=== PATIENT | male | born 1995 | race Caucasian/White ===

== ENCOUNTER 2017-03-13 05:31 | Day surgery (SDC) | payer BC ==
[2017-03-12 10:42] VITALS: BMI 24.8
--- NOTE | 2017-03-12 18:53 | HPN ---
Date/Time of Note Date/Time of Note DATE: 03/12/17 TIME: 18:53 Interval H&P Admission Note Pt. seen H&P reviewed: No system changes MARY TARANGO MD Mar 12, 2017 18:53
[2017-03-13] VITALS (10 sets, daily range): BP systolic 108–118; BP diastolic 56–75; PULSE 58–88; RESP 11–18; Ht 170.2 cm; Wt 83.0 kg
[~2017-03-13] VITALS: Ht 170.2 cm; Wt 83.0 kg
[2017-03-13] MEDS ORDERED: CEFAZOLIN 2 GM/50 ML (PMX) 50 ML IVPB SCH (06:00)
[2017-03-13] MEDS ORDERED: CEFAZOLIN 1 GM INJ ONE (06:21)
[2017-03-13] MEDS ORDERED: PROPOFOL 20 ML ONE (06:21)
[2017-03-13] MEDS ORDERED: MIDAZOLAM 1 MG/ML 2 ML INJ ONE (06:21)
[2017-03-13] MEDS ORDERED: FENTAnyl 50 MCG/ML VIAL ONE ×2 (06:21→07:43)
[2017-03-13] MEDS ORDERED: DEXAMETHASONE 4 MG/ML 1 ML INJ ONE (07:33)
[2017-03-13] MEDS ORDERED: METOCLOPRAMIDE 10 MG INJ ONE (07:33)
[2017-03-13] MEDS ORDERED: KETOROLAC 30 MG INJ ONE (07:33)
[2017-03-13] MEDS ORDERED: ONDANSETRON 4 MG INJ ONE (07:33)
[2017-03-13] MEDS ORDERED: BUPIVACAINE 0.5% (SDV) 30 ML INJ ONE (07:36)
[2017-03-13] MEDS ORDERED: ROCURONIUM 50 MG INJ ONE (07:40)
[2017-03-13] MEDS ORDERED: BUPIVACAINE 0.5% 30 ML VIAL INJ ONE (07:40)
[2017-03-13] MEDS ORDERED: HYDROmorphONE (0.2 MG/ML) 10ML SYG IV PRN ×3 (08:00)
[2017-03-13] MEDS ORDERED: METOCLOPRAMIDE 10 MG INJ IV PRN (08:00)
[2017-03-13] MEDS ORDERED: LABETALOL HCL 20MG INJ IV PRN (08:00)
[2017-03-13] MEDS ORDERED: DIPHENHYDRAMINE 50 MG INJ IV PRN (08:00)
[2017-03-13] MEDS ORDERED: OXYCODONE/ACETAMINOPHEN (5/325) TAB PO PRN ×2 (08:00)
[2017-03-13] MEDS ORDERED: ONDANSETRON 4 MG INJ IV PRN (08:00)
[2017-03-13] MEDS ORDERED: EPHEDrine SULFATE 50 MG/5 ML SYG IV PRN (08:00)
[2017-03-13] MEDS ORDERED: morphine (1 MG/ML) 10ML SYRINGE IV PRN ×3 (08:00)
[2017-03-13] MEDS ORDERED: FENTAnyl 50 MCG/ML VIAL IV PRN ×3 (08:00)
[2017-03-13] MEDS ORDERED: MEPERIDINE 25 MG INJ IV PRN (08:00)
[2017-03-13] MEDS ORDERED: SUGAMMADEX SODIUM 200 MG/2 ML VIAL IV ONE (08:45)
--- NOTE | 2017-03-13 08:55 | OPR ---
Date/Time of Note Date/Time of Note DATE: 03/13/17 TIME: 08:48 Operative Report Procedure Date: Mar 13, 2017 Preoperative Diagnosis Left varicocele Postoperative Diagnosis Left varicocele Operation/Procedure Performed Left spermatic vein ligation Surgeon see signature line Material Liaison None Anesthesia Type: general Anesthesiologist: EYAD HANLEY MD Estimated Blood Loss: minimal Transfusion none Specimen Left spermatic vein Grafts/Implants none Complications none Pt Condition Post Procedure: stable Disposition: PACU Indications Left varicocele Procedure Description Patient was brought to the operating room. Time out was done, the patient was identified by his name date and the procedure and the side of the procedure. He was given 2 g of Ancef at the start of the procedure. A left inguinal incision was done 1 inch medial to the superior edge of of the iliac crest and extending toward the midline for about 10 cm. The incision was deepened through the subcutaneous tissue then the aponeurosis of the external oblique muscle was incised. The internal oblique muscle and transversalis fascia were split along their fibers. The retroperitoneum was then entered and the spermatic cord was identified and 1/4 inch [place] drain was passed around. The spermatic vein was isolated from the rest for about 4 cm length. It was ligated proximally and distally I excised the segment between the silk ties. I used 2-0 black silk for the ties. The cord was then inspected for any additional veins and there was a small one and that was isolated and ligated proximally and distally was 2-0 black silk and the segment between was removed . Irrigation was done and there were no bleed . The wound was then closed using 2-0 Vicryl for the transversalis and internal oblique fascia. Figure-of- eight sutures were done. Then the wound was infiltrated was half percent Marcaine for local analgesia. The subcutaneous tissue was approximated with interrupted 3-0 Vicryl sutures. The skin approximated with clary. The wound was covered was a piece of Telfa and a piece of Tegaderm. The patient was transferred to the recovery room in a stable and satisfactory condition MARY TARANGO MD Mar 13, 2017 08:55
[2017-03-13] MEDS ORDERED: HYDROCODONE/APAP (5/325) TAB PO PRN (09:00)
== END 2017-03-13 10:58 | disposition home or self-care (01) ==
LOC: SDS 05:31
PROVIDERS: ATTEND Urology
DX: I86.1 Scrotal varices (principal)
CPT/HCPCS: 88305; J0690; J1100; J1885; J2250; J2405; J2765; J3010